=== PATIENT | female | born 1950 | race American Indian/Alaskan Native ===

== ENCOUNTER 2018-05-12 12:03 | Emergency (ER) | payer MEDICARE ==
--- NOTE | 2018-05-12 12:12 | Emergency Department Report ---
Blank Doc - Documentation Documentation: This is a 68-year-old female that presents with ground level fall with bilatearl knee pains. Denies any head or neck pain. Denies any other traums. This initial assessment diagnostic orders/clinical plan/treatment(s) is/are subject to change based on patient's health status, clinical progression and re- assessment by fellow clinical providers in the ED. Further treatment and workup at subsequent clinical providers discretion. Patient/guardians urged not to elope from ED s their condition may be serious if not clinically assessed and managed. Initial orders include: 1-Patient sent to [facility] for further evaluation and treatment 2- xrays
[2018-05-12] MEDS ORDERED: NORCO 5/325 PO ONE (14:32)
--- NOTE | 2018-05-12 14:48 | XRay Report ---
BILATERAL KNEE RADIOGRAPHS INDICATION: Fall with pain. COMPARISON: None similar at this institution. FINDINGS: AP, lateral and oblique bilateral knee radiographs demonstrate intact articulation. Patellofemoral narrowing bilaterally may though be present, left more than right. Extensive superior and inferior patellar enthesophytes bilaterally also noted. No suprapatellar effusion. CONCLUSION: No acute radiographic abnormality with patellar degenerative changes noted bilaterally, as described. Thank you for the opportunity to participate in this patient's care.
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
[2018-05-12] MEDS ORDERED: BOOSTRIX IM ONE (15:55)
[2018-05-12 16:29] VITALS: BP 141/90
== END 2018-05-12 16:30 | disposition home or self-care (01) ==
LOC: ED 12:03
DX: M17.0 Bilateral primary osteoarthritis of knee (principal); S80.212A Abrasion, left knee, initial encounter; W18.30XA Fall on same level, unspecified, initial encounter; Y93.89 Activity, other specified; Y92.89 Other specified places as the place of occurrence of the external cause; Y99.8 Other external cause status
CPT/HCPCS: 90471; 90715

== ENCOUNTER 2019-01-19 16:00 | Emergency (ER) | payer MEDICARE ==
[2019-01-19 16:55] VITALS: BP 133/69
--- NOTE | 2019-01-19 16:58 | Event Note ---
ED Screening Note Date of service: 01/19/18 Time: 16:56 ED Screening Note: Pt complains of cough with yellow/brown sputum x 2 weeks +DM and chills/sweats denies smoking This initial assessment/diagnostic orders/clinical plan/treatment(s) is/are subject to change based on patients health status, clinical progression and re- assessment by fellow clinical providers in the ED. Further treatment and workup at subsequent clinical providers discretion. Patient/guardian urged not to elope from the ED as their condition may be serious if not clinically assessed and managed. Initial orders include: CXR labs neb
[2019-01-19] MEDS ORDERED: IPRATROPIUM/ALBUTEROL SULFATE 3 ML AMPUL.NEB IH ONE (16:59)
[2019-01-19 17:34] LABS: Hematocrit 36.9 % (30.3-42.9); Hemoglobin 11.9 gm/dl (10.1-14.3); Mean Corpuscular HGB Conc 32 % (30-34); Mean Corpuscular Volume 81 fl (79-97); Platelet Count 357 K/mm3 (140-440); Red Blood Count 4.57 M/mm3 (3.65-5.03); Red Cell Distribution Width 13.4 % (13.2-15.2)
--- NOTE | 2019-01-19 17:51 | XRay Report ---
CHEST 2 VIEWS INDICATION: cough, abnormal breath sounds. COMPARISON: None. FINDINGS: Support devices: None. Heart: Within normal limits. Lungs/Pleura: No acute air space or interstitial disease. No significant pleural effusion. IMPRESSION: No acute findings. Signer Name: El Roman MD Signed: 01/19/2019 5:46 PM Workstation Name: [id number]
[2019-01-19 17:52] LABS: BUN/Creatinine Ratio 9; Blood Urea Nitrogen 7 mg/dL (7-17); Calcium 9.6 mg/dL (8.4-10.2); Hemolysis Index 18
[2019-01-19] MEDS ORDERED: ALBUTEROL 2.5 MG/3 ML NEBU IH ONE (19:06)
[2019-01-19] MEDS ORDERED: predniSONE 50 MG TAB PO STA (19:37)
[2019-01-19] MEDS ORDERED: ACETAMINOPHEN 500 MG TAB ONE (19:50)
[2019-01-19] MEDS ORDERED: ACETAMINOPHEN 500 MG TAB PO ONE (19:52)
--- NOTE | 2019-01-19 19:57 | Emergency Department Report ---
ED General Adult HPI - General Chief complaint: Upper Respiratory Infection Stated complaint: BACK PAIN/COUGH Time Seen by Provider: 01/19/19 16:55 Source: patient Mode of arrival: Ambulatory Limitations: No Limitations - History of Present Illness Initial comments: 68-year-old -Cypriot female with history of hypertension diabetes since emergency Department complaining of cough congestion coryza with yellow which green mucus adduction of the last 2 weeks associated with intermittent wheezes. She did have some throat irritation from a couple of portable hemoptysis, hematemesis, no hematochezia. No diarrhea or vomiting. She reports no rashes no dysuria. -: Gradual, Sudden Radiation: non-radiation Quality: dull Improves with: none Worsens with: none Associated Symptoms: denies: confusion, chest pain, cough, diaphoresis, loss of appetite, malaise, syncope, weakness - Related Data Previous Rx's Medication Instructions Recorded Last Taken Type Cyclobenzaprine [Flexeril 10mg] 10 mg PO Q12H PRN #14 tablet 05/12/18 Unknown Rx traMADol [Ultram 50 MG tab] 50 mg PO Q6HR PRN #12 tablet 05/12/18 Unknown Rx ALBUTEROL Inhaler (OR & NICU) 2 puff IH QID PRN #1 inhalation 01/19/19 Unknown Rx [ProAir HFA Inhaler] guaiFENesin/CODEINE [Robitussin AC] 5 ml PO Q6H PRN #120 ml 01/19/19 Unknown Rx predniSONE [Deltasone] 50 mg PO QDAY #5 tab 01/19/19 Unknown Rx Allergies Allergy/AdvReac Type Severity Reaction Status Date / Time Penicillins Allergy Anaphylaxis Verified 05/12/18 14:32 ED Review of Systems ROS: Stated complaint: BACK PAIN/COUGH Other details as noted in HPI Comment: All other systems reviewed and negative ED Past Medical Hx - Past Medical History Previous Medical History?: Yes Hx Hypertension: Yes Hx Diabetes: Yes Hx Arthritis: Yes Additional medical history: Depression - Surgical History Past Surgical History?: No - Social History Smoking Status: Never Smoker Substance Use Type: None - Medications Home Medications: Home Medications Medication Instructions Recorded Confirmed Last Taken Type Cyclobenzaprine [Flexeril 10mg] 10 mg PO Q12H PRN #14 tablet 05/12/18 Unknown Rx traMADol [Ultram 50 MG tab] 50 mg PO Q6HR PRN #12 tablet 05/12/18 Unknown Rx ALBUTEROL Inhaler (OR & NICU) 2 puff IH QID PRN #1 inhalation 01/19/19 Unknown Rx [ProAir HFA Inhaler] guaiFENesin/CODEINE [Robitussin AC] 5 ml PO Q6H PRN #120 ml 01/19/19 Unknown Rx predniSONE [Deltasone] 50 mg PO QDAY #5 tab 01/19/19 Unknown Rx ED Physical Exam - General Limitations: No Limitations General appearance: alert, in no apparent distress - Head Head exam: Present: atraumatic, normocephalic - Eye Eye exam: Present: normal appearance, PERRL, EOMI - ENT ENT exam: Present: mucous membranes moist - Neck Neck exam: Present: normal inspection - Respiratory Respiratory exam: Present: normal lung sounds bilaterally, wheezes, rhonchi. Absent: respiratory distress, chest wall tenderness - Cardiovascular Cardiovascular Exam: Present: regular rate, normal rhythm. Absent: systolic murmur, diastolic murmur, rubs, gallop - GI/Abdominal GI/Abdominal exam: Present: soft, normal bowel sounds - Extremities Exam Extremities exam: Present: normal inspection - Back Exam Back exam: Present: normal inspection. Absent: CVA tenderness (R), CVA tenderness (L) - Neurological Exam Neurological exam: Present: alert, oriented X3, CN II-XII intact - Psychiatric Psychiatric exam: Present: normal affect, normal mood - Skin Skin exam: Present: warm, dry, intact, normal color. Absent: rash, cyanosis, diaphoretic, erythema, petechiae, pallor, abrasion ED Course Vital Signs 01/19/19 01/19/19 16:04 16:57 Temperature 98.8 F Pulse Rate 118 H 111 H Respiratory 22 Rate Blood Pressure 133/69 O2 Sat by Pulse 92 95 Oximetry ED Medical Decision Making - Lab Data Result diagrams: 01/19/19 17:11 01/19/19 17:11 - Radiology Data Radiology results: report reviewed [address] [place] [id number] XRay Report Signed Patient: SUSAN MONTERROSO MR#: [id number] : 1950 Acct:[id number] Age/Sex: 68 / F ADM Date: 01/19/19 Loc: ED Attending Dr: Ordering Physician: CORTEZ GARCIA Date of Service: 01/19/19 Procedure(s): XR chest routine 2V Accession Number(s): [id number] cc: CORTEZ GARCIA Fluoro Time In Minutes: CHEST 2 VIEWS INDICATION: cough, abnormal breath sounds. COMPARISON: None. FINDINGS: Support devices: None. Heart: Within normal limits. Lungs/Pleura: No acute air space or interstitial disease. No significant pleural effusion. IMPRESSION: No acute findings. Signer Name: El Roman MD Signed: 01/19/2019 5:46 PM Workstation Name: [id number] Transcribed By: JOHN Dictated By: El Roman MD Electronically Authenticated By: El Roman MD Signed Date/Time: 01/19/19 1189 - Medical Decision Making 60-year-old female presents to hypertension and diabetes cough congestion coryza wheezing nebulizer machine department steroids process of improvement in her and her symptoms and a decreased called she's been having symptoms for over 2 weeks and had taken a round of Zithromax. She is alert and oriented 3 and his symptoms improved with the treatment plan is to have her to follow-up with a primary care provider and give her a course of bronchodilators and S steroids as well as this cough cough suppressant. If she begins to develop a fever or symptoms worsen advised her to follow up 1 time antibiotics may be warranted Critical care attestation.: If time is entered above; I have spent that time in minutes in the direct care of this critically ill patient, excluding procedure time. ED Disposition Clinical Impression: Cough, Wheezing, Bronchitis, Normal chest x-ray Disposition: - TO HOME OR SELFCARE Is pt being admited?: No Does the pt Need Aspirin: No Condition: Stable Instructions: Chronic Bronchitis (ED), Cold Symptoms (ED) Referrals: [facility] [Provider Group] - 3-5 Days
== END 2019-01-19 20:37 | disposition home or self-care (01) ==
LOC: ED 16:00
DX: J40 Bronchitis, not specified as acute or chronic (principal); R91.8 Other nonspecific abnormal finding of lung field; I10 Essential (primary) hypertension; E11.9 Type 2 diabetes mellitus without complications; M19.90 Unspecified osteoarthritis, unspecified site; F32.9 Major depressive disorder, single episode, unspecified; Z79.899 Other long term (current) drug therapy; Z88.0 Allergy status to penicillin
CPT/HCPCS: 36415; 71046; 80048; 82140; 85027; 94640; 99284; J7512

== ENCOUNTER 2021-02-01 13:39 | Emergency (ER) | payer MEDICARE ==
[2021-02-01 14:03] VITALS: BP 169/69
--- NOTE | 2021-02-01 15:00 | Emergency Department Report ---
ED General Adult HPI - General Chief complaint: High BP Stated complaint: HYPERTENSIVE Time Seen by Provider: 02/01/21 14:27 Source: patient Mode of arrival: Ambulatory Limitations: No Limitations - History of Present Illness Initial comments: The patient was evaluated in the emergency department for symptoms described in the history of present illness. He/she was evaluated in the context of the global COVID-19 pandemic, which necessitated consideration that the patient might be at risk for infection with the virus that causes COVID-19. [facility] protocols and algorithms that pertain to the evaluation of patients at risk for COVID-19 are in a state of rapid change based on information released by regulatory bodies including the CDC and federal and state organizations. These policies and algorithms were followed during the patient's care in the emergency department. Please note that these policies, procedures and recommendations changed on a rapid basis. 70-year-old -Maldivian female with a history of hypertension presents to the emergency room stating she was going to get a procedure done and it was noted that her blood pressure was elevated. Patient is currently being treated for hypertension with 2 blood pressure medicines of losartan 100 mg daily and metoprolol 25 mg twice a day. Patient states that she is compliant with her medications. She currently denies any chest pain shortness of breathing or extreme headache. She denies any recent falls. No weaknesses. Patient has no other complaints. -: This morning Severity scale (0 -10): 2 Improves with: none Worsens with: none Associated Symptoms: denies other symptoms Treatments Prior to Arrival: none - Related Data Previous Rx's Medication Instructions Recorded Last Taken Type Cyclobenzaprine [Flexeril 10mg] 10 mg PO Q12H PRN #14 tablet 05/12/18 Unknown Rx traMADoL [Ultram 50 MG tab] 50 mg PO Q6HR PRN #12 tablet 05/12/18 Unknown Rx Albuterol Mdi (or & Nicu Only) 2 puff IH QID PRN #1 inhalation 01/19/19 Unknown Rx [ProAir HFA Inhaler] guaiFENesin/CODEINE [Robitussin AC] 5 ml PO Q6H PRN #120 ml 01/19/19 Unknown Rx predniSONE [Deltasone] 50 mg PO QDAY #5 tab 01/19/19 Unknown Rx Allergies Allergy/AdvReac Type Severity Reaction Status Date / Time Penicillins Allergy Anaphylaxis Verified 05/12/18 14:32 ED Review of Systems ROS: Stated complaint: HYPERTENSIVE Other details as noted in HPI Comment: All other systems reviewed and negative ED Past Medical Hx - Past Medical History Hx Hypertension: Yes Hx Diabetes: Yes Hx Arthritis: Yes Additional medical history: Depression - Social History Smoking Status: Never Smoker Substance Use Type: None - Medications Home Medications: Home Medications Medication Instructions Recorded Confirmed Last Taken Type Cyclobenzaprine [Flexeril 10mg] 10 mg PO Q12H PRN #14 tablet 05/12/18 Unknown Rx traMADoL [Ultram 50 MG tab] 50 mg PO Q6HR PRN #12 tablet 05/12/18 Unknown Rx Albuterol Mdi (or & Nicu Only) 2 puff IH QID PRN #1 inhalation 01/19/19 Unknown Rx [ProAir HFA Inhaler] guaiFENesin/CODEINE [Robitussin AC] 5 ml PO Q6H PRN #120 ml 01/19/19 Unknown Rx predniSONE [Deltasone] 50 mg PO QDAY #5 tab 01/19/19 Unknown Rx ED Physical Exam - General Limitations: No Limitations General appearance: alert, in no apparent distress - Head Head exam: Present: atraumatic, normocephalic - Eye Eye exam: Present: normal appearance - ENT ENT exam: Present: mucous membranes moist - Neck Neck exam: Present: normal inspection - Respiratory Respiratory exam: Present: normal lung sounds bilaterally. Absent: respiratory distress - Cardiovascular Cardiovascular Exam: Present: regular rate, normal rhythm. Absent: systolic murmur, diastolic murmur, rubs, gallop - GI/Abdominal GI/Abdominal exam: Present: soft, normal bowel sounds - Extremities Exam Extremities exam: Present: normal inspection - Back Exam Back exam: Present: normal inspection - Neurological Exam Neurological exam: Present: alert, oriented X3 - Psychiatric Psychiatric exam: Present: normal affect, normal mood - Skin Skin exam: Present: warm, dry, intact, normal color. Absent: rash ED Course Vital Signs 02/01/21 14:01 Temperature 98.3 F Pulse Rate 71 Respiratory 18 Rate Blood Pressure 169/69 O2 Sat by Pulse 98 Oximetry ED Medical Decision Making - Medical Decision Making 70-year-old -Maldivian female with a history of hypertension presents to the emergency room stating she was going to get a procedure done and it was noted that her blood pressure was elevated. Patient is currently being treated for hypertension with 2 blood pressure medicines of losartan 100 mg daily and metoprolol 25 mg twice a day. Patient states that she is compliant with her medications. She currently denies any chest pain shortness of breathing or extreme headache. She denies any recent falls. No weaknesses. Patient has no other complaints. Patient is in no acute distress at this time. She will be discharged home and encouraged to follow up with a primary care provider. She is encouraged to return to the emergency room for any worsening symptoms. Critical care attestation.: If time is entered above; I have spent that time in minutes in the direct care of this critically ill patient, excluding procedure time. ED Disposition Clinical Impression: Hypertension Disposition: 01 HOME / SELF CARE / HOMELESS Is pt being admited?: No Does the pt Need Aspirin: No Condition: Stable Instructions: Hypertension (ED), Hypertension, Adult, [id number] Additional Instructions: Please continue with your blood pressure medication. Is very important you follow-up with your primary care provider. Return back to the emergency room if you start having chest pain shortness of breathing worst headache of your life. Referrals: DELFINO PIZARRO MD [Referring] - 3-5 Days Forms: Work/School Release Form(ED) Time of Disposition: 14:57
== END 2021-02-01 15:44 | disposition home or self-care (01) ==
LOC: ED 13:39
DX: I10 Essential (primary) hypertension (principal); E11.9 Type 2 diabetes mellitus without complications; F32.9 Major depressive disorder, single episode, unspecified; M19.90 Unspecified osteoarthritis, unspecified site; Z88.0 Allergy status to penicillin; Z79.899 Other long term (current) drug therapy
CPT/HCPCS: 99281